=== PATIENT | female | born 1985 | race Two or more races ===

== ENCOUNTER → 2016-06-27 | Outpatient (CLI) | payer BC ==
--- NOTE | 2016-06-27 13:13 | Diagnostic Imaging Report ---
Indication: TB SCREEN Technique: 2 views of the chest Comparison: none. Findings: Lungs and pleural spaces are clear. Heart size is normal. Bones are unremarkable.. Impression: No acute process
== END | disposition home or self-care (01) ==
LOC: RAD 11:30
DX: R76.11 Nonspecific reaction to tuberculin skin test without active tuberculosis (principal)
CPT/HCPCS: 71020